=== PATIENT | female | born 1975 | race Caucasian/White ===

== ENCOUNTER 2017-07-18 02:13 | Emergency (ER) | payer OTHER ==
[2017-07-18 02:19] VITALS: BP 133/75; PULSE 73; RESP 18; TEMP 98.6
--- NOTE | 2017-07-18 02:43 | ED ---
ENT HPI - General Chief complaint: ENT Stated complaint: ear pain Time Seen by Provider: 07/18/17 02:27 Source: patient, RN notes reviewed Mode of arrival: ambulatory Limitations: no limitations - History of Present Illness Initial comments: This is a 41-year-old female who presents to emergency department with chief complaint of right ear pain. Patient states that she's been fighting a cold for the past 2 weeks with symptoms including runny nose, cough, nasal congestion and sore throat. Patient states that at 1 PM this morning she awoke with a coughing fit. She states she then had excruciating pain in the right ear and she heard a "pop." Patient states that she drove to the emergency department and while driving she chewed a piece of gum which alleviated the pain. Patient denies any other symptoms. Denies fever, chills, chest pain, shortness of breath, abdominal pain, nausea or vomiting, constipation or diarrhea, dysuria or hematuria, numbness or tingling, headache or vision changes. - Related Data Previous Rx's Medication Instructions Recorded Amoxicillin/Potassium Clav 1 tab PO Q12HR #14 tab 07/18/17 [Augmentin 875-125 Tablet] Allergies Allergy/AdvReac Type Severity Reaction Status Date / Time No Known Allergies Allergy Verified 07/18/17 02:19 Review of Systems ROS Statement: Those systems with pertinent positive or pertinent negative responses have been documented in the HPI. ROS Other: All systems not noted in ROS Statement are negative. Past Medical History Past Medical History: No Reported History History of Any Multi-Drug Resistant Organisms: None Reported Past Surgical History: Cholecystectomy, Hernia Repair, Orthopedic Surgery Past Psychological History: No Psychological Hx Reported Smoking Status: Never smoker Past Alcohol Use History: Rare Past Drug Use History: None Reported General Exam - General Exam Comments Initial Comments: General: Awake and alert, well-developed; in no apparent distress. HEENT: Head atraumatic, normocephalic. Pupils are equal, round and reactive to light. Extraocular movements intact. Oropharynx moist without erythema or exudate. Left TM is pearly without effusion. Right TM is diffusely erythematous. No evidence of TM perforation and no drainage from the ear. Neck: Supple. Normal ROM. Cardiovascular: Regular rate and rhythm. No murmurs, rubs or gallops. Chest symmetrical. Respiratory: Lungs clear to auscultation bilaterally. No wheezes, rales or rhonchi. Normal respiratory effort with no use of accessory muscles. . Musculoskeletal: Normal ROM, no tenderness bilateral upper and lower extremities. Ambulating normally. Skin: [place], warm and dry without rashes or lesions. Neurological: Alert and oriented x3. CN II-XII grossly intact. Speech is fluent and answers are appropriate. No focal neuro deficits. Psychiatric: Normal mood and affect. No overt signs of depression or anxiety noted. Limitations: no limitations Course Vital Signs 07/18/17 02:15 Temperature 98.6 F Pulse Rate 73 Respiratory 18 Rate Blood Pressure 133/75 O2 Sat by Pulse 98 Oximetry Medical Decision Making - Medical Decision Making This is a 41-year-old female who presents to the emergency department with chief complaint of acute onset right ear pain. Patient's right ear TM is diffusely erythematous with no evidence of TM perforation on exam. Patient will be discharged home with prescription for Augmentin. She is in agreement and voices understanding. All questions were answered. Disposition Clinical Impression: Otitis media Disposition: HOME SELF-CARE Condition: Good Instructions: Otitis Media (ED) Additional Instructions: Please take medications as prescribed. Please follow up with primary care provider within 1-2 days. Return to emergency department if symptoms should worsen or any concerns arise. Prescriptions: Amoxicillin/Potassium Clav [Augmentin 875-125 Tablet] 1 tab PO Q12HR #14 tab Referrals: Arron Serna DO [Primary Care Provider] - 1-2 days Time of Disposition: 02:42
== END 2017-07-18 02:48 | disposition home or self-care (01) ==
LOC: EC 02:13
DX: H66.91 Otitis media, unspecified, right ear (principal); J02.9 Acute pharyngitis, unspecified; R05 Cough; R09.81 Nasal congestion; R09.89 Other specified symptoms and signs involving the circulatory and respiratory systems
CPT/HCPCS: 99282

== ENCOUNTER → 2022-11-03 | Outpatient (CLI) | payer OTHER | END | disposition home or self-care (01) | LOC: LABWHC1 09:17 | PROVIDERS: ATTEND Family Medicine | DX: E34.9 Endocrine disorder, unspecified (principal); N95.9 Unspecified menopausal and perimenopausal disorder; E67.0 Hypervitaminosis A | CPT/HCPCS: 36415; 84590 ==

== ENCOUNTER → 2022-12-06 | Outpatient (CLI) | payer OTHER ==
--- NOTE | 2022-12-06 11:04 | MM ---
Reason for Exam: Clinical finding. Last screening mammogram was performed less than 1 month ago. Patient History: Menarche at age 7. First Full-Term at age 24. Perimenopausal. Patient has history of breast feeding. Currently using Progesterone, starting at age 47. Maternal grandmother had ovarian cancer at or over age 50. Mother had breast cancer under age 50. Risk Values: Celine 5 year model risk: 2.0%. NCI Lifetime model risk: 18.6%. Tissue Density: Right: The breast tissue is heterogeneously dense. This may lower the sensitivity of mammography. Findings: Analyzed By CAD. Subtle area of underlying architectural distortion approximately 1:00 posterior right breast even on spot 3-D images. Further ultrasound evaluation recommended. Overall Assessment: Incomplete: need additional imaging evaluation, BI-RAD 0 Management: Diagnostic Breast Ultrasound of the right breast. Particular attention 1:00 position. Electronically signed and approved by: Isa Araujo M.D. Radiologist
--- NOTE | 2022-12-06 11:28 | USB ---
Reason for Exam: Additional evaluation requested from abnormal screening. Patient History: Menarche at age 7. First Full-Term at age 24. Perimenopausal. Patient has history of breast feeding. Currently using Progesterone, starting at age 47. Maternal grandmother had ovarian cancer at or over age 50. Mother had breast cancer under age 50. Risk Values: Celine 5 year model risk: 2.0%. NCI Lifetime model risk: 18.6%. Technique: Method: Whole Breast Handheld. Prior Study Comparison: 11/30/2022 Bilateral MG 3D screening mammo w/cad, [facility]. Findings: The whole breast of the right breast, the axilla of the right breast and the retroareolar of the right breast were scanned. A complete US of all four quadrants of the breast, axilla, and retro-areolar region were reviewed. At the 1:00 position, 7 cm from the nipple, there is a irregular hypoechoic lesion measuring 8 x 7 x 5 mm. This appearance is somewhat vertically oriented. Suspected mammographic correlate, suspicious finding for which tissue sampling is recommended. The remainder of the breast shows no solid or cystic lesion. No axillary lymphadenopathy. Overall Assessment: Suspicious, BI-RAD 4 Management: Ultrasound Core Biopsy of the right breast. For the suspicious finding at 1:00, likely correlate to the mammographic distortion. Results were given to the patient verbally at the time of exam. Electronically signed and approved by: Isa Araujo M.D. Radiologist
== END | disposition home or self-care (01) ==
LOC: RADMAMWWP 10:31
PROVIDERS: ATTEND Family Medicine
DX: R92.8 Other abnormal and inconclusive findings on diagnostic imaging of breast (principal); Z80.3 Family history of malignant neoplasm of breast
CPT/HCPCS: 77061; 77065

== ENCOUNTER → 2022-12-18 | Day surgery (SDC) | payer OTHER ==
--- NOTE | 2022-12-18 17:05 | USB ---
Risk Values: Celine 5 year model risk: 2.0%. NCI Lifetime model risk: 18.6%. Findings: The right breast was scanned at the 1:00 position in preparation for biopsy. Shadowing dense patches of fibroglandular tissue is demonstrated here. We are unable to obtain a discrete target for biopsy or reproduce the finding on 12/06/2022. Mammographic findings likely correspond to this dense patchy fibroglandular tissue. Six-month follow-up mammogram and ultrasound is recommended. The biopsy is being deferred at this time. Findings and impression were discussed with the patient. Management: Diagnostic Mammogram of the right breast in 6 months. Additional 6 month followup right breast ultrasound. Patient should continue monthly self breast exams. These results should not preclude additional followup of suspicious palpable abnormalities. Electronically signed and approved by: Isa Araujo M.D. Radiologist
== END ==
LOC: RADUSWWP 11:33
PROVIDERS: ATTEND Radiology Diagnostic Radiology
DX: R92.8 Other abnormal and inconclusive findings on diagnostic imaging of breast (principal); Z53.8 Procedure and treatment not carried out for other reasons

== ENCOUNTER → 2023-10-28 | Outpatient (CLI) | payer OTHER ==
--- NOTE | 2023-10-28 12:07 | MM ---
Reason for Exam: Additional evaluation requested from prior study. Last screening mammogram was performed 11 month(s) ago. Indicated Problems: Other indicated problem of the right side. Patient History: Menarche at age 7. First Full-Term at age 24. Perimenopausal. Patient has history of breast feeding. Currently using Progesterone, starting at age 47. 12/18/2022, US discontinued breast core RT on the right side. Maternal grandmother had ovarian cancer at or over age 50. Mother had breast cancer under age 50. Risk Values: Celine 5 year model risk: 2.0%. NCI Lifetime model risk: 18.6%. Prior Study Comparison: 11/30/2022 Bilateral MG 3D screening mammo w/cad, [facility]. 12/06/2022 Right MG 3D work up w/cad RT, [facility]. Tissue Density: Right: The breasts are heterogeneously dense, which may obscure small masses. Findings: Analyzed By CAD. The pattern appears stable. A subtle distortion is in the upper inner aspect right breast 1:00 position 10 cm nipple. This is better visualized on tomographic images. Compression views were obtained. This area is persistent on compression as well as the medial lateral view. Ultrasound is recommended for additional workup. Left breast:No suspicious groups of microcalcifications, spiculated or lobular masses, architectural distortion or other secondary signs of malignancy are mammographically apparent. Overall Assessment: Incomplete: need additional imaging evaluation, BI-RAD 0 Management: Diagnostic Breast Ultrasound of the right breast. A negative mammogram report should not preclude additional follow up of suspicious palpable abnormalities. Patient should continue monthly self breast exam. A clinical breast exam by your physician is recommended on an annual basis and results should be correlated with mammographic findings. Electronically signed and approved by: Des Santiago D.O. Radiologis
--- NOTE | 2023-10-28 12:29 | USB ---
Reason for Exam: Additional evaluation requested from prior study. Patient History: Menarche at age 7. First Full-Term at age 24. Perimenopausal. Patient has history of breast feeding. Currently using Progesterone, starting at age 47. 12/18/2022, US discontinued breast core RT on the right side. Maternal grandmother had ovarian cancer at or over age 50. Mother had breast cancer under age 50. Risk Values: Celine 5 year model risk: 2.0%. NCI Lifetime model risk: 18.6%. Technique: Method: Targeted. Doppler: Color. Patient Position: LPO. Prior Study Comparison: 11/30/2022 Bilateral MG 3D screening mammo w/cad, [facility]. 12/06/2022 Right US breast workup RT, [facility]. 12/06/2022 Right MG 3D work up w/cad RT, [facility]. Findings: The upper outer quadrant of the right breast, the axilla of the right breast and the retroareolar of the right breast were scanned. At the 1:00 position 9 cm nipple there is a hypoechoic irregular area with posterior shadowing. It is better visualized and antiradial. This correlates with mammographic finding. Finding is considered suspicious. Ultrasound-guided core biopsy is recommended. If this area cannot be identified at time of scheduled biopsy should be converted to stereotactic core biopsy. There may be some vague hypoechoic area within the 10:00 position 8 cm from the nipple. This area can be followed up. Overall Assessment: Suspicious, BI-RAD 4 Management: Ultrasound Core Biopsy of the right breast. A clinical breast exam by your physician is recommended on an annual basis and results should be correlated with mammographic findings. This exam should not preclude additional follow-up of suspicious palpable abnormalities. Results were given to the patient verbally at the time of exam. Electronically signed and approved by: Des Santiago D.O. Radiologis
== END | disposition home or self-care (01) ==
LOC: RADMAMWWP 10:43
PROVIDERS: ATTEND Family Medicine
DX: R92.331 Mammographic heterogeneous density, right breast (principal); Z80.3 Family history of malignant neoplasm of breast
CPT/HCPCS: 77062; 77066

== ENCOUNTER → 2023-11-11 | Day surgery (SDC) | payer OTHER ==
[~2023-11-11] MED LIST: ALPRAZolam 0.25 MG TAB PO PRN
[2023-11-11] MEDS: ALPRAZolam 0.25 MG TAB PO PRN (08:01)
[2023-11-11 08:23] VITALS: BP 126/73; PULSE 90; RESP 16; TEMP 97.5
== END ==
LOC: RADMAMWWP 07:49
PROVIDERS: ATTEND Family Medicine
DX: Z53.8 Procedure and treatment not carried out for other reasons (principal); R92.8 Other abnormal and inconclusive findings on diagnostic imaging of breast

== ENCOUNTER → 2023-11-11 | Day surgery (SDC) | payer OTHER ==
--- NOTE | 2023-11-15 11:19 | MM ---
Reason for Exam: Post Procedure Mammogram. Last screening mammogram was performed 11 month(s) ago. Patient History: Menarche at age 7. First Full-Term at age 24. Perimenopausal. Patient has history of breast feeding. Currently using Progesterone, starting at age 47. 12/18/2022, US discontinued breast core RT on the right side. Maternal grandmother had ovarian cancer at or over age 50. Mother had breast cancer under age 50. Risk Values: Celine 5 year model risk: 2.0%. NCI Lifetime model risk: 18.6%. Prior Study Comparison: 11/30/2022 Bilateral MG 3D screening mammo w/cad, [facility]. 12/06/2022 Right MG 3D work up w/cad RT, [facility]. 10/28/2023 Right MG 3D diag mammo w/cad [facility], [facility]. Tissue Density: Right: The breasts are heterogeneously dense, which may obscure small masses. Pathology Description: Location: 1 o'clock, upper inner quadrant. Needle Type: Mammotome Cores: 6 Skin Nicks: 1 Gauge: 13 The procedure of ultrasound guided core biopsy was explained to the patient. Benefits, alternatives, and risks were discussed. An informed consent was then obtained. A timeout was performed. The patient was placed in supine positioning for imaging and for the procedure. The overlying skin was prepped and draped in usual sterile fashion. Lidocaine was used as anesthetic into the skin and subcutaneous tissue up to area of concern in the right breast. A small skin lobito was made with surgical scalpel. Under ultrasound guidance, a 12-gauge vacuum assisted biopsy gun device was used to obtain 6 core samples. A biopsy clip was left in lesion. Hydromark coil core marker was placed. The patient tolerated the procedure well without any immediate complication. The patient was kept in the radiology department for short stay after the procedure and then discharged home in stable condition. Postprocedure mammogram: The patient was transferred to mammography for physician ordered post procedure mammogram for clip placement verification. Core marker correlates with mammographic abnormality is well placed at the biopsy site by ultrasound guidance. Impression: Successful ultrasound guided core biopsy of area of concern in the right breast, full pathology results to follow. Recommendations: 1. Recommendations are pending pathology results. Pathology Results: Result: Malignant, Invasive ductal carcinoma. Pathology and radiology were reviewed. Findings are concordant. RIGHT BREAST, 1:00, ULTRASOUND GUIDED NEEDLE CORE BIOPSY: Invasive well differentiated ductal carcinoma (Grade 1) in a background of proliferative fibrocystic changes including radial scar/complex sclerosing lesion and florid usual type ductal hyperplasia. Focal atypical ductal hyperplasia (ADH). See Surgical Pathology Cancer Case Summary and Comment. Overall Assessment: Malignant Assessment: MG diagnostic mammo RT wo CAD - Right: Known biopsy proven malignancy, BI-RAD 6. Management: Surgical Consultation of the right breast. Electronically signed and approved by: Des Santiago D.O. Radiologis
== END ==
LOC: RADUSWWP 07:41
PROVIDERS: ATTEND Family Medicine
DX: C50.911 Malignant neoplasm of unspecified site of right female breast (principal)
CPT/HCPCS: 88305; 88342; 88341; 77065; 19083; A4648

== ENCOUNTER → 2023-12-20 | Outpatient (CLI) | payer OTHER ==
--- NOTE | 2023-12-24 08:00 | BMR ---
EXAM DATE: 12/20/2023 EXAM DESCRIPTION: MRI-Breast Bilat (W/WO Contrast) INDICATION: Right breast carcinoma. Pre-surgical planning. COMPARISON: Prior mammogram and ultrasound dated 10/28/2023 and 11/11/2023 CONTRAST: 6.1 cc Gadavist contrast material. TECHNIQUE: Multi sequence multiplanar MR imaging of the breasts was obtained. Subsequently, after the uneventful intravenous administration of Gadavist contrast material, 6 dynamic sequences were then obtained. Post processing was performed utilizing a [employer] CAD workstation. FINDINGS: The breasts are composed of heterogeneous fibroglandular tissue. There is moderate background parenchymal enhancement identified. There is no axillary or internal mammary lymphadenopathy. Lymph nodes with benign morphology are stable in the axillary regions. No focal skin thickening or nipple retraction. The bone marrow signal intensity is unremarkable. No adenopathy in the visualized mediastinum. T2 weighted images demonstrated no dominant cystic lesion in either breast. Post contrast images of the right breast demonstrated irregular enhancing mass with progressive and persistent kinetics and signal void in the superomedial quadrant of left posterior breast at 1 o'clock position 10 cm posterior to the nipple measuring 2.0 x 1.0 x 1.8 cm (503 image 486 and series 601, image 161) consistent with biopsy-proven primary. There is no evidence of multifocal or multicentric disease. There is no abnormal enhancement in the left breast to suggest malignancy There is no abnormal signal or enhancement in the chest wall or subcutaneous tissue. IMPRESSION: 1. A 2.0 cm irregular enhancing mass in the left posterior breast at 1 o'clock position consistent with known primary. There is no multifocal or multicentric disease. 2. No axillary or internal mammary lymphadenopathy. 3. No MR evidence of malignancy in the left breast. Final assessment: BI-RADS category 6: Known malignancy: Appropriate management is recommended MTDD
== END | disposition home or self-care (01) ==
LOC: RADMRIMAIN 08:26
PROVIDERS: ATTEND Surgery
DX: Z01.818 Encounter for other preprocedural examination (principal); C50.211 Malignant neoplasm of upper-inner quadrant of right female breast; N63.21 Unspecified lump in the left breast, upper outer quadrant
CPT/HCPCS: 77049; A9585

== ENCOUNTER → 2024-11-19 | Outpatient (CLI) | payer OTHER ==
--- NOTE | 2024-11-19 14:03 | MM ---
Reason for Exam: Clinical finding. Last mammogram was performed 1 year(s) and 11 month(s) ago. Patient History: Menarche at age 7. First Full-Term at age 24. Perimenopausal. Patient has history of breast feeding. Breast cancer, right, age 47. Progesterone, starting at age 47. 11/27/2023, US biopsy breast VAD LT - 2 on the Left side. 01/10/2024, Reduction on the Left side. 01/10/2024, Lumpectomy on the Right side. 11/11/2023, Malignant US biopsy breast VAD RT on the right side. 12/18/2022, US discontinued breast core RT on the right side. Maternal grandmother had ovarian cancer at or over age 50. Mother had breast cancer under age 50. Last menstrual period: 11/19/2024 Tissue Density: The breasts are heterogeneously dense, which may obscure small masses. Findings: Analyzed By CAD. 3 cm density noted far upper outer left breast 11 cm from nipple. Apparently there is a stricture prior biopsy and reduction mammoplasty. Ultrasound is recommended for further evaluation. Lumpectomy changes right breast. No suspicious microcalcifications. Overall Assessment: Incomplete: need additional imaging evaluation, BI-RAD 0 Management: Diagnostic Breast Ultrasound of the left breast. . Results were given to the patient verbally at the time of exam. Patient should continue monthly self-breast exams. A clinical breast exam by your physician is recommended on an annual basis. This exam should not preclude additional follow-up of suspicious palpable abnormalities. Note on Celine scores and lifetime risk: 1. A Celine score greater than 3% is considered moderate risk. If this is the case, consider specialist referral to assess eligibility for a risk reducing agent. 2. If overall lifetime risk for the development of breast cancer is 20% or higher, the patient may qualify for future screening with alternating mammogram and breast MRI. [facility], , 11/19/2024 2:00 PM. Electronically signed and approved by: Yevgeniy Laguna M.D. Radiologis
--- NOTE | 2024-11-19 14:11 | USB ---
Patient History: Menarche at age 7. First Full-Term at age 24. Perimenopausal. Patient has history of breast feeding. Breast cancer, right, age 47. Progesterone, starting at age 47. 11/27/2023, US biopsy breast VAD LT - 2 on the Left side. 01/10/2024, Reduction on the Left side. 01/10/2024, Lumpectomy on the Right side. 11/11/2023, Malignant US biopsy breast VAD RT on the right side. 12/18/2022, US discontinued breast core RT on the right side. Maternal grandmother had ovarian cancer at or over age 50. Mother had breast cancer under age 50. Technique: Method: Targeted. Prior Study Comparison: 12/06/2022 Right MG 3D work up w/cad RT, [facility]. 10/28/2023 Right MG 3D diag mammo w/cad [facility], [facility]. 11/11/2023 Right MG diagnostic mammo RT wo CAD, [facility]. Findings: The upper outer quadrant of the left breast, the axilla of the left breast and the retroareolar of the left breast were scanned. There is a mixed somewhat hyperechoic area noted at the left 2:00 position 11 cm from the nipple measuring 3.2 x 1.8 x 1.1 cm and correlates to the mammographic abnormality. This likely reflects an area of fat necrosis related to recent reduction mammoplasty. 3 month follow-up ultrasound and mammography advised.. Overall Assessment: Probably benign, BI-RAD 3 Management: Diagnostic Mammogram of the left breast in 3 months. A clinical breast exam by your physician is recommended on an annual basis and results should be correlated with mammographic findings. This exam should not preclude additional follow-up of suspicious palpable abnormalities. Results were given to the patient verbally at the time of exam. [facility], , 11/19/2024 2:08 PM. Electronically signed and approved by: Yevgeniy Laguna M.D. Radiologis
== END | disposition home or self-care (01) ==
LOC: RADMAMWWP 12:45
PROVIDERS: ATTEND Radiology Radiation Oncology
DX: C50.211 Malignant neoplasm of upper-inner quadrant of right female breast (principal); R92.333 Mammographic heterogeneous density, bilateral breasts; Z71.3 Dietary counseling and surveillance; Z85.3 Personal history of malignant neoplasm of breast; Z80.3 Family history of malignant neoplasm of breast
CPT/HCPCS: 77062; 77066